=== PATIENT | female | born 2000 | race African-American/Black ===

== ENCOUNTER 2019-03-23 10:43 | Emergency (ER) | payer SELFPAY ==
--- NOTE | 2019-03-23 11:33 | ER Document Report ---
ED Medical Screen (RME) - General Chief Complaint: Lower Abdominal Pain Stated Complaint: ABDOMINAL PAIN,VAGINAL BLEEDING Time Seen by Provider: 03/23/19 11:18 Notes: Healthy 18-year-old female presents the emergency department with abnormal va ginal bleeding x1 week and right-sided adnexal pain. States pain is sharp and intermittent.. Last menstrual was 1 week ago and then she had spotting. She also complain of abnormal vaginal discharge. She denies urinary frequency, dysuria, but complains of urinary urgency. Denies fevers or chills, denies shortness of breath or chest pain, denies nausea or vomiting. Exam: Lungs clear to auscultation in all [place], bowel sounds heard, unable to perform complete abdominal exam in triage I have greeted and performed a rapid initial assessment of this patient. A comprehensive ED assessment and evaluation of the patient, analysis of test results and completion of medical decision making process will be conducted by an additional ED providers. TRAVEL OUTSIDE OF THE [place] IN LAST 30 DAYS: No - Related Data Allergies/Adverse Reactions: No Known Allergies Allergy (Unverified 03/23/19 11:09) Past Medical History - Social History Chew tobacco use (# tins/day): No Frequency of alcohol use: Rare Drug Abuse: Marijuana
[2019-03-23 11:59] LABS: APPEARANCE,URINE CLEAR; BILIRUBIN,URINE NEGATIVE (NEGATIVE); COLOR,URINE YELLOW; GLUCOSE, URINE NEGATIVE (NEGATIVE); KETONES,URINE NEGATIVE (NEGATIVE); LEUKOCYTE ESTERASE,URINE NEGATIVE (NEGATIVE); NITRITE,URINE NEGATIVE (NEGATIVE); PROTEIN,URINE NEGATIVE (NEGATIVE); URINE SPECIFIC GRAVITY 1.019; UROBILINOGEN,URINE NEGATIVE mg/dL (<2.0)
--- NOTE | 2019-03-23 13:00 | RADIOLOGY REPORT (SQ) ---
EXAM DESCRIPTION: U/S NON OB PEL TV W/DOPPLER COMPLETED DATE/TIME: 03/23/2019 12:37 pm REASON FOR STUDY: pain and bleeding COMPARISON: None. TECHNIQUE: Dynamic and static grayscale images acquired of the pelvis via transvaginal approach and recorded on PACS. Additional selected color Doppler and spectral images recorded. LIMITATIONS: None. FINDINGS: UTERUS: Contour normal. No mass. ENDOMETRIAL STRIPE: No focal or generalized thickening. No masses. CERVIX: No nabothian cysts. RIGHT OVARY AND DOPPLER: Normal size. No worrisome masses. Normal arterial vascular flow without evid ence for torsion. LEFT OVARY AND DOPPLER: Normal size. No worrisome masses. Normal arterial vascular flow without evide nce for torsion. FREE FLUID: None noted. OTHER: No other significant finding. IMPRESSION: NORMAL TRANSVAGINAL PELVIC ULTRASOUND. TECHNICAL DOCUMENTATION: JOB ID: [id number] [employer]- All Rights Reserved Rev Reading location - IP/workstation name: [email or web address]
[2019-03-23 14:07] LABS: BACTERIA (WET MOUNT) 3+ BACTERIA SEEN; RBCS (WET MOUNT) 4+ RBCS SEEN; T.VAGINALIS (WET MOUNT) NO TRICHOMONAS SEEN; WBCS (WET MOUNT) 1+ WBCS SEEN; YEAST (WET MOUNT) NO YEAST SEEN
--- NOTE | 2019-03-23 14:13 | ER Document Report ---
ED General - General Chief Complaint: Lower Abdominal Pain Stated Complaint: ABDOMINAL PAIN,VAGINAL BLEEDING Time Seen by Provider: 03/23/19 11:18 Primary Care Provider: GENARO DEL RIO MD [ACTIVE STAFF] - Follow up as needed TRAVEL OUTSIDE OF THE [place] IN LAST 30 DAYS: No - HPI Notes: Patient is a 18-year-old female presents emergency department for abnormal vaginal bleeding. She states the first day of her last menstrual period was approximately February 28. She had a normal menstruation. She started bleeding again, but lately at first, now at about the same amount as her normal periods. She is had some intermittent right pelvic pain. She denies any other vaginal discharge. She is sexually active. She is never had a Pap smear or pelvic exam performed. No history of STDs, currently in a monogamous relationship. She has never been . - Related Data Allergies/Adverse Reactions: No Known Allergies Allergy (Unverified 03/23/19 11:09) Home Medications: None Past Medical History - General Information source: Patient - Social History Smoking Status: Never Smoker Chew tobacco use (# tins/day): No Frequency of alcohol use: Rare Drug Abuse: Marijuana Family History: Reviewed & Not Pertinent Patient has suicidal ideation: No Patient has homicidal ideation: No Review of Systems - Review of Systems Constitutional: No symptoms reported EENT: No symptoms reported Cardiovascular: No symptoms reported Respiratory: No symptoms reported Gastrointestinal: No symptoms reported Genitourinary: No symptoms reported Female Genitourinary: See HPI Musculoskeletal: No symptoms reported Skin: No symptoms reported Neurological/Psychological: No symptoms reported Physical Exam - Notes Notes: This is a 18-year-old female appears her stated age in no acute distress. Head is normocephalic and atraumatic, pupils are equal round, reactive to light. Heart is regular rate and rhythm, lungs are clear to station bilaterally. Abdomen soft, nontender, normoactive bowel sounds. Pelvic exam was performed with PCT present in the room. Normal external genitalia. Mild amount of bright red vaginal bleeding noted. Cervix is closed, nontender, no visible lesions. No adnexal tenderness, no cervical motion tenderness. Course - Re-evaluation Re-evalutation: 03/23/19 14:26 Patient presents to the emergency department for evaluation. She has only vaginal bleeding. No findings on her exam are concerning for any sort of infectious process. I told her that testing was pending, but I felt comfortable with the idea of discharge prior to results. She feels comfortable with this as well. Transvaginal ultrasound is unremarkable. She was encouraged to establish care with an [facility]. She is never had a Pap smear. She is sexually active. She is coming to the aid with that would be necessary. She is in encouraged also possibly talk about oral contraceptives for better control of her menstrual periods. She understands this and was discharged. - Laboratory Laboratory results interpreted by me: 03/23/19 11:22 Urine Blood MODERATE H - Diagnostic Test Radiology reviewed: Reports reviewed Radiology results interpreted by me: 03/23/19 14:28 Transvaginal US 03/23/19 11:30 IMPRESSION: NORMAL TRANSVAGINAL PELVIC ULTRASOUND. Discharge - Discharge Clinical Impression: Abnormal vaginal bleeding Condition: Stable Disposition: HOME, SELF-CARE Instructions: Vaginal Bleeding ([facility]) Additional Instructions: No clear cause was found for your abnormal bleeding today. Your ultrasound was normal. You should follow-up with [facility], discussed regular Pap smears and perhaps control. You will be contacted if any of your other testing becomes positive. Return to the ED with worsening or new concerning symptoms of any sort. Referrals: GENARO DEL RIO MD [ACTIVE STAFF] - Follow up as needed
[2019-03-23 15:38] LABS: CHLAM PCR DETECTED (NOT DETECT)
== END 2019-03-23 14:23 | disposition home or self-care (01) ==
LOC: ER 10:43
DX: N93.8 Other specified abnormal uterine and vaginal bleeding (principal); R10.30 Lower abdominal pain, unspecified
CPT/HCPCS: 76830; 81001; 81025; 87210; 87491; 87591; 93976; 99284